=== PATIENT | male | born 1980 | race Caucasian/White ===

== ENCOUNTER 2023-12-24 17:58 | Emergency (ER) | payer MEDICAID, SELFPAY ==
[2023-12-24 18:11] VITALS: BP 161/91; PULSE 97; RESP 20; TEMP 36.4; O2SAT 97; BMI 30.4
--- NOTE | 2023-12-24 18:15 | ECG_ITS ---
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 Measurements Intervals [place] Rate: 99 P: 42 [place]: 140 QRS: -48 QRSD: 89 T: 77 QT: 351 QTc: 452 Interpretive Statements SINUS RHYTHM LEFT ANTERIOR FASCICULAR BLOCK [QRS AXIS <= -45, QR IN I, RS IN II] MODERATE VOLTAGE CRITERIA FOR LVH, CONSIDER NORMAL VARIANT [MEETS CRITERIA IN ONE OF: R(aVL), S(V1), R(V5), R(V5/V6)+S(V1)] POSSIBLE SEPTAL MYOCARDIAL INFARCTION , POSSIBLY ACUTE [30 ms Q WAVE IN V1/V2] ACUTE IN No previous ECG available for comparison Electronically Signed On 12-24-2023 19:05:25 CDT by Divya Grimm M.D. [id number]
--- NOTE | 2023-12-24 18:51 | CTR_ITS ---
PROCEDURE INFORMATION: Exam: CT Head Without Contrast Exam date and time: 12/24/2023 6:57 PM Age: 43 years old Clinical indication: Pain; Headache; Additional info: Sharp frontal smart/visual changes TECHNIQUE: Imaging protocol: Computed tomography of the head without contrast. Radiation optimization: All CT scans at this facility use at least one of these dose optimization techniques: automated exposure control; mA and/or kV adjustment per patient size (includes targeted exams where dose is matched to clinical indication); or iterative reconstruction. COMPARISON: No relevant prior studies available. RADIATION DOSE METRICS: Total DLP (mGy-cm): 1161 FINDINGS: Brain: Normal. No hemorrhage. Unremarkable white matter. No mass effect. Cerebral ventricles: No ventriculomegaly. Paranasal sinuses: Visualized sinuses are unremarkable. No fluid levels. Mastoid air cells: Visualized mastoid air cells are well aerated. Bones: Unremarkable. No acute fracture. Soft tissues: Unremarkable. CT/CT head wo con* [id number] IMPRESSION: No acute intracranial abnormality.
--- NOTE | 2023-12-24 18:54 | W.ED.HA ---
Documented by User: AMANDA West 12/24/23 19:41 HPI - Headache General: Chief Complaint: Headache Stated Complaint: headache, dizzy Time Seen by Provider: 12/24/23 18:43 Source: patient Mode of arrival: ambulatory Limitations: no limitations History of Present Illness: Patient is a 43-year-old male presenting to the emergency department complaining of headache onset 1 day. Patient denies history of migraine headaches. He states that the headache has been constant and primarily located on the frontal aspect. He is reporting associated nausea, body aches, and blurry vision. His only pertinent past medical history to report is some untreated hypertension. He notes that his headache is worsened by light and sound. The headache did begin all of a sudden and states that nothing he has tried has seemed to help. He denies any chest pain, unilateral numbness/weakness/tingling, palpitations, shortness of breath, or other symptoms at this time. No recent trauma reported. MD elicited complaint: headache Pertinent past history: hypertension Onset (ago): day(s) Onset description: suddenly Location: frontal Severity: severe Exacerbating factors: light and noise Relieving factors: nothing Context: occurred at rest Associated symptoms: Reports nausea; Deny chest pain, fever(s), lightheadedness, rash or vomiting Review of Systems General: Reports: 10 or more systems reviewed and unremarkable except in HPI and below Const: Reports: body aches; Denies: fever(s), chills or fatigue Eyes: Reports: blurry vision ENMT: Denies: throat pain, ear or mastoid pain or nasal discharge Card: Denies: chest pain, palpitations, swelling of feet/ankles or lightheadedness Resp: Denies: dyspnea, productive cough or wheezing GI: Reports: nausea; Denies: abdominal pain, vomiting, diarrhea or constipation : Denies: flank pain, difficulty urinating, dysuria or urinary frequency Musc: Denies: neck pain, back pain or joint pain Skin/Breast: Denies: rash Neuro: Reports: headache(s); Denies: numbness in extremities or weakness in extremities PFS ED PFSH: Medical History Hypertension Pneumothorax on right Family History Mother Diabetes mellitus, type 2 Carotid artery disease Congestive heart failure (CHF) CAD (coronary artery disease) Hypertension Father , 12 years ago -- unknown Hypertension Alcohol abuse Social History Smoking and tobacco/nicotine status: current every day tobacco/nicotine user cigarettes Packs smoked per day: 1 Years cigarettes smoked: 25 Alcohol intake: never Substance/Drug Use: current Substance/Drug use frequency: few times a week Adopted: No Caregiver/support person: No Lives independently: Yes Household members: none Housing: House Marital status: Single Number of children: 2 Highest education level completed: GED or Equivalent service: No Current occupational status: employed Current occupation: Construction Sexually active: Yes How many partners: 1 Are you practicing safe sex: Yes Do you think of yourself as: Straight/Heterosexual Current gender identity: Male Physical Exam Const: COMMON NORMALS: patient oriented x3 and no limitations GENERAL APPEARANCE: cooperative and well developed ORIENTATION/CONSCIOUSNESS: Yes awake, Yes oriented to person, Yes oriented to place and Yes oriented to time OTHER: Patient examined in dark room with eyes shut the entire time. HENMT: COMMON NORMALS: normocephalic, atraumatic and hearing grossly normal bilaterally HEAD & SCALP: normocephalic and atraumatic Eye: COMMON NORMALS: Equal, round and reactive pupils present, EOMs intact bilaterally and conjunctivae normal CONJUNCTIVA: Yes conjunctivae normal PUPIL: Yes Equal, round and reactive pupils present Neck/C-Spine: COMMON NORMALS: full ROM, supple and no JVD Resp: COMMON NORMALS: normal respiratory effort, No retractions, No use of accessory muscles and clear to auscultation bilaterally AUSCULTATION: clear to auscultation bilaterally Cardio: COMMON NORMALS: no JVD, regular rate, regular rhythm, No clicks present (Cardio), No murmurs present (Cardio) and No rub (Cardio) RATE: regular rate RHYTHM: regular rhythm Extremity: COMMON NORMALS: normal to inspection, full ROM and capillary refill normal Neuro: COMMON NORMALS: patient oriented x3, CN's II-XII intact bilaterally, moves all extremities, no focal motor deficits and no sensory deficits noted SENSORIUM/ORIENTATION: Yes oriented to person, Yes oriented to place and Yes oriented to time Psych: COMMON NORMALS: mental status grossly normal and Normal thought process present THOUGHT PROCESS: Normal thought process present Skin: COMMON NORMALS: no rashes or lesions noted GENERAL SKIN EXAM: no rashes or lesions noted Course Vital Signs: Vital signs: Vital Signs Temperature 97.6 F 12/24/23 18:11 Pulse Rate 92 12/24/23 19:30 Respiratory Rate 20 H 12/24/23 18:11 Blood Pressure 147/82 12/24/23 19:30 Pulse Oximetry 96 12/24/23 19:30 Oxygen Delivery Me thod Room Air 12/24/23 19:30 MDM - Headache Medical Decision Making Patient presented for 1 day of headache. No reported history of migraines. He had no neurological deficit on physical examination. CT of the head did not demonstrate any acute abnormality. He will be given migraine cocktail, and he states that on recheck he feels better. Will discharge home with return precautions. He has to follow-up with his primary care provider to discuss his high blood pressure as well as any potential migraine prophylaxis. His EKG and triage was reviewed by Dr. Pelaez, who states that despite electronic reading of acute AZ, this does not appear to be a STEMI. Patient denied any complaints of chest pain initially, and after further investigation clarifies that he has had no chest pain or other concerning symptoms to note. I did inform him to also follow-up with primary care for outpatient cardiac management as needed. Lab Data Radiology Impressions Head CT 12/24/23 18:51 IMPRESSION: No acute intracranial abnormality. All radiology interpretation(s) finalized by discharge Discharge Plan Discharge Patient Disposition: Home Clinical Impression: Migraine Condition: Stable Prescriptions: No Action losartan 25 mg tablet 25 mg PO DAILY Qty: 30 0RF ibuprofen 200 mg Tablet 800 mg PO Q6H PRN (Reason: Pain) amlodipine 10 mg tablet 10 mg PO DAILY Qty: 30 0RF promethazine 25 mg tablet 25 mg PO Q6H PRN (Reason: headahe) Qty: 20 0RF Discharge Orders: Discharge ED (Routine); Ordered 12/24/23 Ordered By: Cecil Bonilla Discharge Diet: Usual diet Discharge Activity: Increase activity as tolerated Patient Instructions: Acute Headache (ED) Activity Restrictions/Additional Instructions: Plenty of fluids. Tylenol or ibuprofen for any pain. Please follow-up with primary care as discussed for your blood pressure and for migraine therapy. Return with any new or concerning symptoms. Coding Level of Care Code ED Organic Preparation Analyst for Chg Fwd Documented by User: Varun Hopkins DO 01/02/24 21:06 HPI - Headache General: Chief Complaint: Headache Stated Complaint: headache, dizzy Time Seen by Provider: 12/24/23 18:43 PFSH ED PFSH: Medical History Hypertension Pneumothorax on right Family History Mother Diabetes mellitus, type 2 Carotid artery disease Congestive heart failure (CHF) CAD (coronary artery disease) Hypertension Father , 12 years ago -- unknown Hypertension Alcohol abuse Social History Smoking and tobacco/nicotine status: current every day tobacco/nicotine user cigarettes Packs smoked per day: 1 Years cigarettes smoked: 25 Alcohol intake: never Substance/Drug Use: current Substance/Drug use frequency: few times a week Adopted: No Caregiver/support person: No Lives independently: Yes Household members: none Housing: House Marital status: Single Number of children: 2 Highest education level completed: GED or Equivalent service: No Current occupational status: employed Current occupation: Construction Sexually active: Yes How many partners: 1 Are you practicing safe sex: Yes Do you think of yourself as: Straight/Heterosexual Current gender identity: Male Course Vital Signs: Vital signs: Vital Signs Temperature 97.6 F 12/24/23 18:11 Pulse Rate 92 12/24/23 19:30 Respiratory Rate 20 H 12/24/23 18:11 Blood Pressure 147/82 12/24/23 19:30 Pulse Oximetry 96 12/24/23 19:30 Oxygen Delivery Me thod Room Air 12/24/23 19:30 MDM - Headache Medical Decision Making Patient presented for 1 day of headache. No reported history of migraines. He had no neurological deficit on physical examination. CT of the head did not demonstrate any acute abnormality. He will be given migraine cocktail, and he states that on recheck he feels better. Will discharge home with return precautions. He has to follow-up with his primary care provider to discuss his high blood pressure as well as any potential migraine prophylaxis. His EKG and triage was reviewed by Dr. Pelaez, who states that despite electronic reading of acute AZ, this does not appear to be a STEMI. Patient denied any complaints of chest pain initially, and after further investigation clarifies that he has had no chest pain or other concerning symptoms to note. I did inform him to also follow-up with primary care for outpatient cardiac management as needed. chart reviewed Lab Data Radiology Impressions Head CT 12/24/23 18:51 IMPRESSION: No acute intracranial abnormality. Discharge Plan Discharge Patient Disposition: Home Clinical Impression: Migraine Condition: Stable Prescriptions: No Action losartan 25 mg tablet 25 mg PO DAILY Qty: 30 0RF ibuprofen 200 mg Tablet 800 mg PO Q6H PRN (Reason: Pain) amlodipine 10 mg tablet 10 mg PO DAILY Qty: 30 0RF promethazine 25 mg tablet 25 mg PO Q6H PRN (Reason: headahe) Qty: 20 0RF Discharge Orders: Discharge ED (Routine); Ordered 12/24/23 Ordered By: Cecil Bonilla Discharge Diet: Usual diet Discharge Activity: Increase activity as tolerated Patient Instructions: Acute Headache (ED) Activity Restrictions/Additional Instructions: Plenty of fluids. Tylenol or ibuprofen for any pain. Please follow-up with primary care as discussed for your blood pressure and for migraine therapy. Return with any new or concerning symptoms. Coding Level of Care Code ED Organic Preparation Analyst for Sebastian Minaya
[2023-12-24 19:22] VITALS: BP 136/84; O2SAT 95
[2023-12-24] MEDS: sodium chloride 0.9% 1,000 ML 999 ML IV (19:26)
[2023-12-24 19:30] VITALS: BP 147/82; PULSE 92; O2SAT 96
[2023-12-24] MEDS: ketorolac 60 mg/2 mL INJ 30 MG IVP (19:48)
[2023-12-24] MEDS: metoclopramide 5 mg/mL SDV 2 mL 10 MG IVP (19:50)
[2023-12-24] MEDS: diphenhydrAMINE 50 mg/mL SDV 1mL IVP (19:52)
[2023-12-24] MEDS: dexamethasone 10 mg/mL INJ 8 MG IVP (19:55)
== END 2023-12-24 20:26 | disposition home or self-care (01) ==
PROVIDERS: Emergency Provider Physician Assistant
DX: R51.9 Headache, unspecified (principal)
CPT/HCPCS: 70450; 93005; 96374; 96375; 99285; J1100; J1200; J1885; J2765; J7030

== ENCOUNTER → 2023-12-26 14:23 | Outpatient (BNVA) | payer MEDICAID, SELFPAY | PROVIDERS: Visit Provider Nurse Practitioner Family | DX: I10 Essential (primary) hypertension (principal); R30.0 Dysuria; G43.919 Migraine, unspecified, intractable, without status migrainosus | CPT/HCPCS: 80053; 80061; 81000; 84443; 85025; 93005 ==

== ENCOUNTER 2023-12-27 06:34 | Emergency (ER) | payer MEDICAID, SELFPAY ==
[2023-12-27 06:35] VITALS: BP 209/120; PULSE 88; RESP 20; TEMP 36.9; O2SAT 95; BMI 31.6
--- NOTE | 2023-12-27 06:41 | ECG_ITS ---
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 Measurements Intervals [place] Rate: 85 P: 28 [place]: 150 QRS: -10 QRSD: 98 T: 43 QT: 364 QTc: 435 Interpretive Statements SINUS RHYTHM NONSPECIFIC T-WAVE ABNORMALITY Compared to ECG 12/24/2023 18:15:12 T-wave abnormality now present Left anterior fascicular block no longer present Myocardial infarct finding no longer present Electronically Signed On 12-27-2023 21:58:14 CDT by Divya Grimm M.D. [email or web address] [email or web address] Justtide Technologykettering health washington township.Zhihu/store/[id number]
--- NOTE | 2023-12-27 06:44 | XRR_ITS ---
PROCEDURE INFORMATION: Exam: XR Chest Exam date and time: 12/27/2023 7:11 AM Age: 43 years old Clinical indication: Cough and dyspnea; Additional info: Dyspnea/cough TECHNIQUE: Imaging protocol: Radiologic exam of the chest. Views: 1 view. COMPARISON: No relevant prior studies available. FINDINGS: Lungs: Unremarkable. No consolidation. Pleural spaces: There is blunting of the left costophrenic angle which may reflect a small amount of pleural fluid or possibly pleural thickening. No pneumothorax is identified. Heart/Mediastinum: Unremarkable. No cardiomegaly. Bones/joints: Unremarkable. XR/XR chest 1V portable [id number] IMPRESSION: 1. Blunting left costophrenic angle.
--- NOTE | 2023-12-27 06:45 | ED_ITS ---
HPI - Chest Pain 2 General: Chief Complaint: Headache Stated Complaint: headache chest pain Time Seen by Provider: 12/27/23 06:40 Source: patient Mode of arrival: ambulatory History of Present Illness: 43-year-old male presents emergency room complaining of headache and some mild chest pain. 3 days ago patient was seen in the emergency room for headache. At that time he had some early repull on the EKG. Midlevel at scene and patient reviewed the EKG with Dr. Morse who did not feel it represented an acute coronary syndrome. Patient continues to have elevated blood pressure and headache since then. He is tried ibuprofen with no relief. He intermittently is having chest pain with no radiation apparent shortness of breath no diaphoresis. He has no known history of coronary disease complains of a frontal headache today with nausea with no vomiting. He did take 600 mg of ibuprofen about 5 hours before arriving here. No head trauma no vomiting. CT of the head done at original ER visit was unremarkable. When seen by midlevel yesterday was started on losartan which she has not yet picked up from the pharmacy. Blood pressure markedly elevated on arrival here. He denies any shortness of breath he is afebrile his oxygen saturation is normal he is not tachycardic. Denies palpations. Denies lateralizing weakness or other neurologic symptoms no difficulty speech swallowing or vision. MD complaint: chest pain Timing of current episode: episodic Prior episodes: Yes Onset: during rest Pain location: substernal Pain radiation: none Quality: aching Relieving factors: nothing Exacerbating factors: nothing Associated symptoms: Deny abdominal pain, diaphoresis, dyspnea, fever(s), leg edema, nausea, palpitations, sense of impending doom, syncope or vomiting Treatment prior to arrival: none Review of Systems 2 Const: Denies: fever(s), chills or diaphoresis Card: Denies: chest pain, palpitations or syncope Resp: Denies: dyspnea GI: Denies: abdominal pain, nausea or vomiting : Denies: dysuria, urinary frequency or urinary urgency Musc: Denies: neck pain or back pain Skin/Breast: Denies: rash PFSH ED 2 PFSH: Medical History Hypertension Pneumothorax on right Family History Mother Diabetes mellitus, type 2 Carotid artery disease Congestive heart failure (CHF) CAD (coronary artery disease) Hypertension Father , 12 years ago -- unknown Hypertension Alcohol abuse Social History Smoking and tobacco/nicotine status: current every day tobacco/nicotine user cigarettes Packs smoked per day: 1 Years cigarettes smoked: 25 Alcohol intake: never Substance/Drug Use: current Substance/Drug use frequency: few times a week Adopted: No Caregiver/support person: No Lives independently: Yes Household members: none Housing: House Marital status: Single Number of children: 2 Highest education level completed: GED or Equivalent service: No Current occupational status: employed Current occupation: Construction Sexually active: Yes How many partners: 1 Are you practicing safe sex: Yes Do you think of yourself as: Straight/Heterosexual Current gender identity: Male Physical Exam 2 Const: COMMON NORMALS: no acute distress GENERAL APPEARANCE: cooperative and comfortable ORIENTATION/CONSCIOUSNESS: Yes awake, Yes oriented to person, Yes oriented to place and Yes oriented to time HENMT: COMMON NORMALS: normocephalic, atraumatic and hearing grossly normal bilaterally HEAD & SCALP: normocephalic and atraumatic Resp: COMMON NORMALS: normal respiratory effort, No retractions, No use of accessory muscles and clear to auscultation bilaterally AUSCULTATION: clear to auscultation bilaterally Cardio: COMMON NORMALS: regular rate, regular rhythm and No murmurs present (Cardio) RATE: regular rate RHYTHM: regular rhythm GI: COMMON NORMALS: Soft to palpation and No hepatosplenomegaly present A USCULTATION: Yes normoactive bowel sounds PALPATION: Yes Soft to palpation, No Tenderness to palpation present (GI), No Guarding due to palpation present (GI) and Yes No hepatosplenomegaly present Extremity: COMMON NORMALS: normal to inspection, capillary refill normal, no clubbing, cyanosis or edema, no calf tenderness and no pedal edema Neuro: SENSORIUM/ORIENTATION: Yes oriented to person, Yes oriented to place and Yes oriented to time Skin: COMMON NORMALS: no rashes or lesions noted GENERAL SKIN EXAM: no rashes or lesions noted Course 2 Vital Signs: Vital signs: Vital Signs Temperature 99.8 F H 12/27/23 08:33 Pulse Rate 94 12/27/23 07:52 Respiratory Rate 20 H 12/27/23 06:35 Blood Pressure 170/99 12/27/23 07:52 Pulse Oximetry 96 12/27/23 07:52 Oxygen Delivery Me thod Room Air 12/27/23 07:52 MDM - Chest Pain Medical Decision Making Headache and blood pressure improved. A lumbar tap was done out of concern for patient's for current complaints of headache along with a low-grade fever that was noted today. Lumbar tap did not show any significant white cells single mononuclear white blood cell no red blood cells. Tap was otherwise clear glucose and protein were normal. Discharge patient home he had both lisinopril and losartan on his med list asked him to only take losartan. I will also have him start amlodipine 10 mg daily. Recheck blood pressure with next week. Medical Records I reviewed the patient's medical records. Lab Data I reviewed the patient's lab results. 12/27/23 06:50 12/27/23 06:50 Radiology Impressions Chest X-Ray 12/27/23 06:44 IMPRESSION: 1. Blunting left costophrenic angle. Gallbladder Ultrasound 12/27/23 08:10 IMPRESSION: 1. Hepatomegaly with coarse echogenicity likely due to fatty infiltration. 2. Cholelithiasis. No gallbladder wall thickening or pericholecystic fluid. 3. Normal common bile duct. 4. No hydronephrosis in the RIGHT kidney. Laboratory Results WBC 5.15 10^3/uL (3.29-11.43) 12/27/23 06:50 RBC 5.02 10^6/uL (3.85-5.65) 12/27/23 06:50 Hgb 14.90 g/dL (11.27-16.99) 12/27/23 06:50 Hct 43.6 % (37-53) 12/27/23 06:50 MCV 86.9 fl (82-101) 12/27/23 06:50 MCH 29.7 pg (27-33) 12/27/23 06:50 MCHC 34.2 g/dL (30-55) 12/27/23 06:50 RDW 12.7 % (12.1-15.1) 12/27/23 06:50 Plt Count 182 10^3/cmm (157-399) 12/27/23 06:50 MPV 8.7 fL (7.4-10.4) 12/27/23 06:50 Neut % (Auto) 79.7 % 12/27/23 06:50 Lymph % (Auto) 10.5 % 12/27/23 06:50 [place] % (Auto) 8.0 % 12/27/23 06:50 Eos % (Auto) 0.4 % 12/27/23 06:50 Baso % (Auto) 0.6 % 12/27/23 06:50 Neut # (Auto) 4.11 10^3/uL (1.8-7.7) 12/27/23 06:50 Lymph # (Auto) 0.5 10^3/uL (0.8-4.8) L 12/27/23 06:50 [place] # (Auto) 0.4 10^3/uL (0.2-0.9) 12/27/23 06:50 Eos # (Auto) 0.0 10^3/uL (0.0-0.8) 12/27/23 06:50 Baso # (Auto) 0.0 10^3/uL (0.0-0.1) 12/27/23 06:50 Nucleated RBC % (auto) 0 % 12/27/23 06:50 Nucleated RBCs # 0.0 /100WBC 12/27/23 06:50 PT 13.20 SECONDS (12.1-14.9) 12/27/23 06:50 INR 0.97 (0.8-1.2) 12/27/23 06:50 APTT 31.4 SECONDS (23.9-36.7) 12/27/23 06:50 Sodium 129 mmol/L (136-145) L 12/27/23 06:50 Potassium 3.9 mmol/L (3.5-5.1) 12/27/23 06:50 Chloride 92 mmol/L (98-107) L 12/27/23 06:50 Carbon Dioxide 25 mmol/L (22-29) 12/27/23 06:50 Anion Gap 15.9 (5-19) 12/27/23 06:50 BUN 14 mg/dL (6-20) 12/27/23 06:50 Creatinine 1.0 mg/dL (0.7-1.2) 12/27/23 06:50 GFR Calculation 81.9 mL/min (90-130) L 12/27/23 06:50 Glucose 128 mg/dL (65-115) H 12/27/23 06:50 Calculated Osmolality 270 mOsm/kg (285-295) L 12/27/23 06:50 Calcium 8.3 mg/dL (8.5-10.5) L 12/27/23 06:50 Total Bilirubin 0.6 mg/dL (0.15-1.2) 12/27/23 06:50 AST 144 U/L (0-40) H 12/27/23 06:50 ALT 131 U/L (0-41) H 12/27/23 06:50 Alkaline Phosphatase 148 U/L (40-130) H 12/27/23 06:50 Troponin T Baseline 27 ng/L (0-15) H 12/27/23 06:50 Troponin T 120 Minute 25.03 ng/L (0-15) H 12/27/23 09:00 Delta Troponin T -1.97 ABS# (0-10) L 12/27/23 09:00 Total Protein 6.7 g/dL (6.6-8.7) 12/27/23 06:50 Albumin 3.8 g/dL (3.5-5.2) 12/27/23 06:50 Globulin 2.9 g/dL (1.3-4.6) 12/27/23 06:50 Urine Color Yellow (Yellow) 12/27/23 07:55 Urine Appearance Clear (CLEAR) 12/27/23 07:55 Urine pH 5 (5-7) 12/27/23 07:55 Ur Specific [place] 1.015 (1.005-1.030) 12/27/23 07:55 Urine Protein Neg (Negative) 12/27/23 07:55 Urine Glucose (UA) Norm (Normal) 12/27/23 07:55 Urine Ketones Negative (Negative) 12/27/23 07:55 Urine Blood Neg (Negative) 12/27/23 07:55 Urine Nitrate Negative (Negative) 12/27/23 07:55 Urine Bilirubin Neg (Negative) 12/27/23 07:55 Urine Urobilinogen 1 mg/dL (Negative) H 12/27/23 07:55 Ur Leukocyte Esterase Negative (Negative) 12/27/23 07:55 CSF Appearance Clear (CLEAR) 12/27/23 11:16 CSF Color Colorless (COLORLESS) 12/27/23 11:16 CSF Specific [place] 1.005 12/27/23 11:16 CSF WBC 1 /uL (0-5) 12/27/23 11:16 CSF RBC 0 10^3/uL (0-0) 12/27/23 11:16 CSF Mononuclear # Auto 0.001 10^3/uL (50-90) L 12/27/23 11:16 CSF Mononuclear WBCs % 100 % (50-90) H 12/27/23 11:16 CSF Polynuclear WBCs # 0.000 10^3/uL (0-10) 12/27/23 11:16 CSF Polynuclear WBCs % 0 % (0-10) 12/27/23 11:16 CSF Glucose 61 mg/dL (40-70) 12/27/23 11:16 CSF Total Protein 26 mg/dL (15-45) 12/27/23 11:16 Adenovirus (PCR) Not detected (NOT DETECT) 12/27/23 10:08 C. pneumoniae DNA (PCR) Not detected (NOT DETECT) 12/27/23 10:08 Coronavirus 229E (PCR) Not detected (NOT DETECT) 12/27/23 10:08 Hepatitis A IgM Ab Non-reactive (Nonreactive) 12/27/23 06:50 Hep Bs Antigen Non-reactive (Nonreactive) 12/27/23 06:50 Hep B Core IgM Ab Non-reactive (Nonreactive) 12/27/23 06:50 Hepatitis C Antibody Reactive (Nonreactive) H 12/27/23 06:50 Human Metapneumovir PCR Not detected (NOT DETECT) 12/27/23 10:08 Influenza A (H1) PCR Not detected (NOT DETECT) 12/27/23 10:08 Influ A (H1/09) PCR Not detected (NOT DETECT) 12/27/23 10:08 Influenza A (H3) PCR Not detected (NOT DETECT) 12/27/23 10:08 Influenza Type A (PCR) Not detected (NOT DETECT) 12/27/23 10:08 Influenza Type B (PCR) Not detected (NOT DETECT) 12/27/23 10:08 M. pneumoniae (PCR) Not detected (NOT DETECT) 12/27/23 10:08 Parainfluenza 1 (PCR) Not detected (NOT DETECT) 12/27/23 10:08 Parainfluenza 2 (PCR) Not detected (NOT DETECT) 12/27/23 10:08 Parainfluenza 3 (PCR) Not detected (NOT DETECT) 12/27/23 10:08 Parainfluenza 4 (PCR) Not detected (NOT DETECT) 12/27/23 10:08 RSV Type A (PCR) Not detected (NOT DETECT) 12/27/23 10:08 RSV Type B (PCR) Not detected (NOT DETECT) 12/27/23 10:08 Entero/Rhino (PCR) Not detected (NOT DETECT) 12/27/23 10:08 SARS-CoV-2 (PCR) Not detected (NOT DETECT) 12/27/23 10:08 All radiology interpretation(s) finalized by discharge Discharge Plan Discharge Patient Disposition: Home Clinical Impression: Viral URI, HTN (hypertension), Hepatitis C Condition: Stable Prescriptions: New amlodipine 10 mg tablet 10 mg PO DAILY Qty: 30 0RF Discontinued lisinopril 5 mg Tablet 5 mg PO DAILY No Action losartan 25 mg tablet 25 mg PO DAILY Qty: 30 0RF ibuprofen 200 mg Tablet 800 mg PO Q6H PRN (Reason: Pain) Discharge Orders: Discharge ED (Routine); Ordered 12/27/23 Ordered By: Varun Hopkins Discharge Diet: Usual diet Discharge Activity: Increase activity as tolerated Patient Instructions: Opioid Safety, Pain Management Activity Restrictions/Additional Instructions: Thank you for choosing [facility] for your healthcare needs today. It is very important that you follow up as instructed or that you return to the Emergency Department should you have concerns or if your condition changes or worsens in any way. You were seen today with headache and elevated blood pressure. Your evaluation did not show significant abnormalities your sodium is slightly low. Your blood pressure was elevated did improve with medications given. We did do a lumbar tap which showed 1 white blood cell no other abnormalities. Recommend that you do not take the lisinopril continue the losartan and add amlodipine 10 mg daily follow-up with your primary care doctor within the next week to reevaluate your blood pressure. Coding Level of Care Code ED [employer] Bus [employer] for Sebastian Minaya
[2023-12-27 07:04] LABS: Basophils % 0.6 %; Eosinophils % 0.4 %; Hematocrit 43.6 % (37-53); Lymphocytes # 0.5 10^3/uL (0.8-4.8); Lymphocytes % 10.5 %; Mean Corpuscular HGB Conc 34.2 g/dL (30-55); Mean Corpuscular Hemoglobin 29.7 pg (27-33); Mean Corpuscular Volume 86.9 fl (82-101); Mean Platelet Volume 8.7 fL (7.4-10.4); Monocytes # 0.4 10^3/uL (0.2-0.9); Neutrophils # 4.11 10^3/uL (1.8-7.7); Neutrophils % 79.7 %; Nucleated Red Blood Cells % 0 %; Platelet Count 182 10^3/cmm (157-399); Red Blood Count 5.02 10^6/uL (3.85-5.65); Red Cell Distribution Width 12.7 % (12.1-15.1); White Blood Count 5.15 10^3/uL (3.29-11.43)
[2023-12-27] MEDS: labetalol 5 mg/mL SDV 20mL 10 MG IVP (07:04)
--- NOTE | 2023-12-27 07:04 | ECG_ITS ---
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 Measurements Intervals [place] Rate: 84 P: 17 PA: 151 QRS: -17 QRSD: 101 T: 50 QT: 367 QTc: 434 Interpretive Statements SINUS RHYTHM MODERATE VOLTAGE CRITERIA FOR LVH, CONSIDER NORMAL VARIANT [MEETS CRITERIA IN ONE OF: R(aVL), S(V1), R(V5), R(V5/V6)+S(V1)] NONSPECIFIC T-WAVE ABNORMALITY Compared to ECG 12/27/2023 06:41:10 No significant changes Electronically Signed On 12-27-2023 21:58:18 CDT by Divya Grimm M.D. [email or web address]
[2023-12-27] MEDS: hyDRALAzine 20 mg/mL INJ 1 mL 10 MG IVP (07:05)
[2023-12-27] MEDS: metoclopramide 5 mg/mL SDV 2 mL 10 MG IVP (07:05)
[2023-12-27] MEDS: diphenhydrAMINE 50 mg/mL SDV 1mL IVP (07:06)
[2023-12-27] MEDS: aspirin 81 mg Chew Tablet 324 MG PO (07:07)
[2023-12-27 07:20] LABS: Alanine Aminotransferase 131 U/L (0-41); Albumin Level 3.8 g/dL (3.5-5.2); Alkaline Phosphatase 148 U/L (40-130); Anion Gap 15.9 (5-19); Aspartate Amino Transferase 144 U/L (0-40); Blood Urea Nitrogen 14 mg/dL (6-20); Calcium 8.3 mg/dL (8.5-10.5); Carbon Dioxide 25 mmol/L (22-29); Chloride 92 mmol/L (98-107); Creatinine Clr Calc Pharmacy 135.0952; Globulin 2.9 g/dL (1.3-4.6); Glomerular Filtration Rate 81.9 mL/min (90-130); Glucose 128 mg/dL (65-115); Osmolality Calculated 270 mOsm/kg (285-295); Potassium 3.9 mmol/L (3.5-5.1); Sodium 129 mmol/L (136-145); Total Bilirubin 0.6 mg/dL (0.15-1.2); Total Protein 6.7 g/dL (6.6-8.7)
[2023-12-27 07:21] LABS: Troponin(5th) Baseline 27 ng/L (0-15)
[2023-12-27 07:52] VITALS: BP 170/99; PULSE 94; O2SAT 96
[2023-12-27 08:05] LABS: Add Urine Microscopic? NO; Charge for UA Resulting for Rev
--- NOTE | 2023-12-27 08:10 | US_ITS ---
WS: [id number] ULTRASOUND ABDOMEN LIMITED CLINICAL INFORMATION: elevated LFTs COMPARISON: None. FINDINGS: Liver Size: Enlarged Craniocaudal length: 18.6 cm. Echogenicity: Coarse Surface nodularity: None. Mass (size and location): None. Bile ducts Intrahepatic ducts: Normal. Common bile duct diameter: 0.5 cm. Gallbladder cholelithiasis Gallstones: Present Gallbladder sludge: None. Gallbladder wall thickening: None. Pericholecystic fluid: None. Sonographic Storm sign: Absent. Pancreas Normal as visualized. Right kidney: Normal. Hydronephrosis: None. Size: 10.4 cm x 5.6 cm x 5.1 cm. Abdominal aorta and IVC Visualized portions are normal. Ascites: None. US/US gall bladder [id number] IMPRESSION: 1. Hepatomegaly with coarse echogenicity likely due to fatty infiltration. 2. Cholelithiasis. No gallbladder wall thickening or pericholecystic fluid. 3. Normal common bile duct. 4. No hydronephrosis in the RIGHT kidney.
[2023-12-27] MEDS: sodium chloride 0.9% 1,000 ML 999 ML IV (08:22)
[2023-12-27] MEDS: ketorolac 30 mg/mL INJ IVP (08:23)
[2023-12-27] MEDS: morphine 4 mg/mL SDV 1 mL IVP (08:23)
[2023-12-27] MEDS: ondansetron 2 mg/ML SDV 2 mL 4 MG IVP (08:23)
[2023-12-27 08:31] LABS: Bilirubin Urine Neg (Negative); Blood Urine Neg (Negative); Glucose Urine UA Norm (Normal); Ketones Urine Negative (Negative); Leukocyte Esterase Urine Negative (Negative); Nitrate Urine Negative (Negative); Protein Urine Neg (Negative); Specific Gravity, Urine 1.015 (1.005-1.030); Urine Appearance Clear (CLEAR); Urine Color Yellow (Yellow); Urobilinogen Urine 1 mg/dL (Negative); pH Urine 5 (5-7)
[2023-12-27 08:33] VITALS: TEMP 37.7
--- NOTE | 2023-12-27 08:44 | ECG_ITS ---
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 Measurements Intervals [place] Rate: 80 P: 8 IN: 149 QRS: -3 QRSD: 104 T: -24 QT: 413 QTc: 478 Interpretive Statements SINUS RHYTHM NONSPECIFIC T-WAVE ABNORMALITY Compared to ECG 12/27/2023 06:57:20 No significant changes Electronically Signed On 12-27-2023 22:09:06 CDT by Divya Grimm M.D. [email or web address]
[2023-12-27 09:39] LABS: Troponin 5 2HR 25.03 ng/L (0-15)
[2023-12-27 09:44] LABS: Troponin 5 2HR Delta -1.97 ABS# (0-10)
[2023-12-27 09:46] LABS: Hepatitis A Antibody IgM Non-Reactive (Nonreactive); Hepatitis B Core IgM Non-Reactive (Nonreactive); Hepatitis B Surface Antigen Non-Reactive (Nonreactive)
[2023-12-27 10:06] LABS: INR 0.97 (0.8-1.2)
[2023-12-27 10:07] LABS: Partial Thromboplastin Time 31.4 SECONDS (23.9-36.7)
[2023-12-27 10:20] LABS: Hepatitis C Virus Antibody Reactive (Nonreactive)
[2023-12-27 12:06] LABS: Cyto Order Verification No Order
[2023-12-27 12:07] LABS: CSF Specific Gravity 1.005
[2023-12-27 12:21] LABS: Appearance CSF CLEAR (CLEAR); CSF Mononuclear # 0.001 10^3/uL (50-90); Color CSF COLORLESS (COLORLESS); Mononuclear WBC CSF % 100 % (50-90); Polynuclear WBC CSF % 0 % (0-10); Red Blood Cell CSF 0 10^3/uL (0-0); White Blood Cell CSF 1 /uL (0-5)
[2023-12-27 12:30] VITALS: BP 162/101
[2023-12-27 12:33] LABS: Glucose CSF 61 mg/dL (40-70); Total Protein CSF 26 mg/dL (15-45)
[2023-12-27 12:40] LABS: Adenovirus Not Detected (NOT DETECT); Chlamydia Pneumoniae Not Detected (NOT DETECT); Coronavirus 229E,HKU1,NL63,OC4 Not Detected (NOT DETECT); Human Metapneumovirus Not Detected (NOT DETECT); Human Rhinovirus/Enterovirus Not Detected (NOT DETECT); Influenza A Not Detected (NOT DETECT); Influenza A H1 Not Detected (NOT DETECT); Influenza A H1-2009 Not Detected (NOT DETECT); Influenza A H3 Not Detected (NOT DETECT); Influenza B Not Detected (NOT DETECT); Mycoplasma Pneumoniae Not Detected (NOT DETECT); Parainfluenza Virus Type 1 Not Detected (NOT DETECT); Parainfluenza Virus Type 2 Not Detected (NOT DETECT); Parainfluenza Virus Type 3 Not Detected (NOT DETECT); Parainfluenza Virus Type 4 Not Detected (NOT DETECT); Respiratory Syncytial Virus A Not Detected (NOT DETECT); Respiratory Syncytial Virus B Not Detected (NOT DETECT); SARS-COV-2 Not Detected (NOT DETECT)
--- NOTE | 2023-12-27 13:03 | ECG_ITS ---
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 Measurements Intervals [place] Rate: 89 P: 8 [place]: 150 QRS: -11 QRSD: 92 T: 48 QT: 346 QTc: 421 Interpretive Statements SINUS RHYTHM NONSPECIFIC T-WAVE ABNORMALITY Compared to ECG 12/27/2023 09:48:33 No significant changes Electronically Signed On 12-27-2023 22:10:46 CDT by Divya Grimm M.D. [email or web address]
[2023-12-29 14:44] LABS: HEP C RNA Viral Load Quant <1.18 NOT DETECTED Log IU/mL (NOT DETECTED); HEP C RNA Viral Load Quant <15 NOT DETECTED IU/mL (NOT DETECTED)
[2023-12-31 19:54] LABS: VDRL on CSF NON-REACTIVE
[2024-01-01 22:05] LABS: St. Louis Enceph.Virus IGG CSF <1:1; St. Louis Enceph.Virus IGM CSF <1:1
== END 2023-12-27 13:33 | disposition home or self-care (01) ==
PROVIDERS: Emergency Provider Family Medicine
DX: J06.9 Acute upper respiratory infection, unspecified (principal); R51.9 Headache, unspecified; R50.9 Fever, unspecified; I10 Essential (primary) hypertension; B19.20 Unspecified viral hepatitis C without hepatic coma; K80.20 Calculus of gallbladder without cholecystitis without obstruction; F17.210 Nicotine dependence, cigarettes, uncomplicated; Z82.49 Family history of ischemic heart disease and other diseases of the circulatory system
CPT/HCPCS: 62270; 71045; 76705; 80053; 80074; 80503; 81003; 82945; 84157; 84315; 84484; 85025; 85610; 85730; 86592; 86653; 86788; 86789; 87070; 87075; 87205; 87486; 87522; 87581; 87633; 89050; 93005; 96374; 96375; 99285; J0360; J1200; J1885; J2270; J2405; J2765; J3490; J7030